=== PATIENT | female | born 1990 | race Caucasian/White ===

== ENCOUNTER 2016-03-26 17:16 | Emergency (ER) | payer MEDICAID ==
--- NOTE | 2016-03-26 17:46 | EDPHY ---
Mental Health General Previous Psychiatric History: previous inpatient psychiatric admission, previous suicide attempt, depression Smoking Status: Former smoker Time Patient Placed on M1 Hold: 16:44 Time Medically Cleared for Psychiatric Evaluation: 20:30 Time of Transfer of Care: 00:14 To Dr:: [place] Course: patient remained stable over course of my shift, no additional interventions Narrative: CHIEF COMPLAINT: M1 hold HISTORY OF PRESENT ILLNESS: 25-year-old female brought in by ambulance and police on an M1 hold. Patient was at the crisis Center today when she got in argument with the mental health restrike hammer operator, went outside and laid down in the parking lot in front of cars. They placed her on an M1 hold for endangering herself and her unborn child. Patient is 6 months . Patient moved to [place] 2 months ago from [place], she states she takes Wellbutrin for depression that was prescribed to her by a doctor in [place]. She has had states she snorts this often. She denies other drug use. Patient reports multiple suicide attempts with overdose and self-harm slicing her wrists, last time was in January. She has been hospitalized for inpatient psychiatric treatment and has been on multiple M1 holds per patient. Patient denies suicidal ideation at this time. She denies homicidal ideation and auditory or visual hallucinations. She denies drug use. She denies alcohol use. Patient reports she was acting out because the therapist made her angry. Patient is . She does not have custody of her children. 2 of them are in foster care and 1 of them is in [place] with her aunt. REVIEW OF SYSTEMS: A comprehensive 10 point review of systems is otherwise negative aside from elements mentioned in the history of present illness. Physical Exam Gen: Alert and Oriented, NAD HEENT: PERRL, moist mucous membranes NECK: no meningismus CV: regular rate and regular rhythm PULM: CTAB, no wheezes ABDOMEN: Gravid uterus, nontender, heart tones 150 BACK: No CVA tenderness NEURO: Neurologically grossly intact EXTREMITIES: normal appearing SKIN: no rash or break in skin on exposed skin PSYCH: answers questions appropriately, denies suicidal ideation, homicidal ideation, auditory and visual hallucinations. (Barbara Pickard) This patient was turned over to oh at change of shift. The patient is safe to go home after assessment. She will either be going to a safe house facility or staying with a friend. Her disposition is safe and she is depressed but not suicidal. (Babatunde Rodriguez) [id number] patient signed out to me pending mental health evaluation. [id number] patient signed out to Dr. Rodriguez pending mental health evaluation and final disposition. There been no issues with this patient during my care. ( Fabio Garibay) Medical Decision Makin-patient awaiting mental health evaluation. EPS is backed up. Patient is aware of the week. She is calm and cooperative. Report passed on to Dr. Garibay at the end of my shift pending evaluation. (Barbara Pickard) - Objective Vital Signs: Initial Vital Signs Temperature (C) 36.4 C 03/26/16 17:33 Heart Rate 84 03/26/16 17:33 Respiratory Rate 14 03/26/16 17:33 Blood Pressure 115/68 03/26/16 17:33 O2 Sat (%) 97 03/26/16 17:33 O2 Delivery Mode Room Air Allergies/Adverse Reactions: No Known Allergies Allergy (Unverified 03/26/16 17:41) Medications Given: Discontinued Medications Acetaminophen (Tylenol) 1,000 mg PO EDNOW ONE Stop: 03/27/16 04:20 Last Admin: 03/27/16 04:25 Dose: 1,000 mg Laboratory Results: Laboratory Results 03/26/16 18:23 03/26/16 18:23 Departure - Departure Disposition: Home, Routine, Self-Care Clinical Impression: Depression Condition: Good Instructions: Depression (ED) Referrals: NONE *PRIMARY CARE P,. [Primary Care Provider] - As per Instructions
[2016-03-26 18:57] LABS: % IMMATURE GRANULYOCYTES 0.4 % (0.0-1.1); ABSOLUTE IMMATURE GRANULOCYTES 0.04 10^3/uL (0.00-0.10); ADD DIFF? NO; ADD MORPH? NO; ADD SCAN? NO; ATYPICAL LYMPHOCYTE FLAG 0 (0-99); FRAGMENT RBC FLAG 0 (0-99); HEMATOCRIT 39.7 % (38.0-47.0); HEMOGLOBIN 13.8 g/dL (12.6-16.3); LEFT SHIFT FLG 0 (0-99); LIPEMIA HEMOLYSIS FLAG 90 (0-99); MEAN CELL HEMOGLOBIN CONCENTR. 34.8 g/dL (32.4-36.7); MEAN CELL VOLUME 92.1 fL (81.5-99.8); MEAN PLATELET VOLUME 10.6 fL (8.7-11.7); PLATELET CLUMPS FLAG 0 (0-99); PLATELET COUNT 283 10^3/uL (150-400); RED BLOOD CELL COUNT 4.31 10^6/uL (4.18-5.33); RED CELL DISTRIBUTION WIDTH 12.1 % (11.5-15.2)
[2016-03-26 19:04] LABS: ANION GAP 8 mEq/L (8-16); CALCIUM 9.5 mg/dL (8.5-10.4); CARBON DIOXIDE 23 mEq/l (22-31); CHLORIDE 104 mEq/L (97-110); CREATININE 0.5 mg/dL (0.6-1.0); ETHANOL SERUM < 10 mg/dL (0-10); GLOMERULAR FILTRATION RATE > 60; GLUCOSE 81 mg/dL (70-100); POTASSIUM 3.8 mEq/L (3.5-5.2); SODIUM 135 mEq/L (134-144)
[2016-03-27] MEDS ORDERED: ACETAMINOPHEN 500 MG TAB PO ONE (04:19)
[2016-03-27 09:59] VITALS: BP 132/86; PULSE 89; RESP 18; TEMP 98.4; O2SAT 96
== END 2016-03-27 09:56 | disposition home or self-care (01) ==
DX: F32.9 Major depressive disorder, single episode, unspecified (principal); Z87.891 Personal history of nicotine dependence
CPT/HCPCS: 80305; G0480